=== PATIENT | female | born 1985 | race Two or more races ===

== ENCOUNTER 2016-08-20 15:38 | Emergency (ER) | payer OTHER ==
[2016-08-20] MEDS ORDERED: METOCLOPRAMIDE INJ 10MG/2ML VIAL (J2765) As Ordered ONE (16:36)
[2016-08-20 17:03] LABS: BASO % 0.1 % (0.0-1.0); EOS # 0.1 K/mm3 (0.0-0.50); EOS % 0.6 % (0.0-3.0); LARGE UNSTAINED CELL # 0.1 K/mm3 (0.0-0.4); LARGE UNSTAINED CELL % 1.1 % (0.0-4.0); LYMPH # 1.5 K/mm3 (1.5-6.5); LYMPH % 12.8 % (24.0-44.0); MEAN CORPUSCULAR HEMOGLOBIN 23.5 pg (27.0-33.0); MEAN CORPUSCULAR HGB CONC 31.3 g/dl (32.0-36.5); MEAN CORPUSCULAR VOLUME 75.2 fl (80.0-96.0); MONO # 0.5 K/mm3 (0.0-0.8); MONO % 3.8 % (0.0-5.0); NEUTROPHILS # 9.5 K/mm3 (1.8-7.7); NEUTROPHILS % 81.6 % (36.0-66.0); PLATELET COUNT, AUTOMATED 203 k/mm3 (150-450); RED CELL DISTRIBUTION WIDTH 15.4 % (11.5-14.5); WHITE BLOOD COUNT 11.7 K/mm3 (4.0-10.0)
[2016-08-20 17:21] LABS: ANION GAP 10 MEQ/L (8-16); BLOOD UREA NITROGEN 7 MG/DL (7-18); CALCIUM LEVEL 9.3 MG/DL (8.5-10.1); CARBON DIOXIDE LEVEL 25 MEQ/L (21-32); CHLORIDE LEVEL 105 MEQ/L (98-107); CREATININE FOR GFR 0.75 MG/DL (0.55-1.02); GLOMERULAR FILTRATION RATE > 60.0 (>60); GLUCOSE, FASTING 86 MG/DL (70-105); POTASSIUM SERUM 3.7 MEQ/L (3.5-5.1); SODIUM LEVEL 140 MEQ/L (136-145)
--- NOTE | 2016-08-20 18:13 | EDDOCDS ---
Physician Documentation [facility] Name: Jeannie Tripp Age: 31 yrs Sex: Female : 1985 Arrival Date: 08/20/2016 Time: 15:38 Bed I4 / M4 Private MD: Disposition: 08/20/16 18:02 Discharged to Home/Self Care. Impression: Mild hyperemesis gravidarum. - Condition is Stable. - Discharge Instructions: First Trimester of , Hyperemesis Gravidarum. - Prescriptions for Diclegis 10- 10 mg Oral - take 2 tablets by ORAL route every 12 hours As needed; 30 tablet. Vitamin 27- 0.8 mg Oral Tablet - take 1 tablet by ORAL route once daily; 30 tablet. - Medication Reconciliation, Local Pharmacy Hours form. - Follow up: [facility]; When: As previously arranged; Reason: Recheck today's complaints, Continuance of care. Follow up: Emergency Department; When: As needed; Reason: Fever > 102F, Worsening of conditions. - Problem is new. - Symptoms have improved. Historical: - Allergies: no known allergies; - Home Meds: 1. Zofran (as hydrochloride) 4 mg Oral tab has not started yet - PMHx: none; - PSHx: none; - Social history: Smoking status: Patient states was never smoker of tobacco. No barriers to communication noted, The patient speaks fluent Setswana, Speaks appropriately for age. - Family history: Not pertinent. - : The pt / caregiver states he / she is not on anticoagulants. Home medication list is obtained from the patient. - Exposure Risk Screening:: None identified. HAND PATCHER: 08/20 15:49 3, Full Term 2, Living 2, LMP 06/23/2016 ld5 Vital Signs: 15:40 BP 116 / 70; Pulse 89; Resp 16; Temp 97.9(O); Pulse Ox 97% on R/A; Weight 61.23 kg / sew 134.99 lbs; Height 5 ft. 4 in. (162.56 cm); Pain 0/10; 18:06 BP 117 / 71; Pulse 93; Resp 18; Temp 98.9(O); Pulse Ox 100% ; Pain 0/10; rs6 15:40 Body Mass Index 23.17 (61.23 kg, 162.56 cm) sew MDM: 16:32 IV Saline Lock ordered. ar2 16:32 Metoclopramide 10 mg IV at 40 mg/hr once over 15 mins ordered. ar2 16:32 NS 0.9% 1000 ml IV at bolus once ordered. ar2 16:32 Fluid Challenge ordered. ar2 16:32 UA Ordered. EDMS 16:32 MED Profile Ordered. EDMS 16:32 CBC with Diff Ordered. EDMS 16:32 Urine Culture Ordered. EDMS 17:12 CBC with Diff Reviewed. ar2 17:24 MED Profile Reviewed. ar2 17:34 Financial registration complete. zo 17:36 NS 0.9% 1000 ml IV at bolus once ordered. ar2 17:38 [facility] Payment Agreement was scanned into [employer] and attached to record. zo 18:01 UA Reviewed. ar2 Administered Medications: 16:46 Drug: Metoclopramide 10 mg [metoclopramide 5 mg/mL injection solution] Route: IV; Rate: ms18 40 mg/hr; Infused Over: 15 mins; Site: right antecubital; 16:46 Drug: NS 0.9% 1000 ml [sodium chloride 0.9 % intravenous solution] Route: IV; Rate: ms18 bolus; Site: right antecubital; 17:48 Not Given (PA DISCRETION): NS 0.9% 1000 ml IV at bolus once js13 Signatures: Dispatcher [employer] EDElza Mcknight zo Reno Clark PA-C PAKingsC ar2 Darlyn Kingston RN RN ld5 Amalia Jain RN RN ms18 Julia Kumar RN js13 The chart was reviewed and I authenticate all verbal orders and agree with the evaluation and treatment provided.Attachments: 17:38 [facility] Payment Agreement zo MTDD
--- NOTE | 2016-08-20 18:14 | EDDOCDS ---
Nurse's Notes [facility] Name: Jeannie Tripp Age: 31 yrs Sex: Female : 1985 Arrival Date: 08/20/2016 Time: 15:38 Bed I4 / M4 Private MD: Diagnosis: Mild hyperemesis gravidarum Presentation: 08/20 15:46 Presenting complaint: Patient states: Pt reports nausea and vomiting since finding out ld5 she was . Pt reports 8 weeks . Seen at [facility] yesterday for the same, was given Zofran prescription but just picked it up today so has not started it yet. Adult Sepsis Screening: The patient does not have new or worsening altered mentation. Patient's respiratory rate is less than 22. Systolic blood pressure is greater than 100. Patient has a qSOFA score of 0- Negative Sepsis Screen. Suicide/Homicide risk assessment- the patient denies having any suicidal and/or homicidal ideations and does not present with any other emotional, behavioral or mental health complaints. Status: The patient is a dependent. Transition of care: patient was not received from another setting of care. 15:46 Method Of Arrival: Walkin/Carried/Asstd ld5 15:46 Acuity: ORLY Level 4 ld5 16:49 Acuity level changed due to complexity of care. js13 16:49 Acuity: ORLY Level 3 js13 Triage Assessment: 15:49 General: Appears in no apparent distress. Pain: Location: abdomen Quality of pain is ld5 described as "it's like a lump in my stomach whenever I try to throw up". HIV screening NA for this visit Offered previously. Neurological: Level of Consciousness is awake, alert. : Denies vaginal bleeding. FOAM MOLDER: 15:49 3, Full Term 2, Living 2, LMP 06/23/2016 ld5 Historical: - Allergies: no known allergies; - Home Meds: 1. Zofran (as hydrochloride) 4 mg Oral tab has not started yet - PMHx: none; - PSHx: none; - Social history: Smoking status: Patient states was never smoker of tobacco. No barriers to communication noted, The patient speaks fluent Thai, Speaks appropriately for age. - Family history: Not pertinent. - : The pt / caregiver states he / she is not on anticoagulants. Home medication list is obtained from the patient. - Exposure Risk Screening:: None identified. Screenin:48 Screening information is obtained from the patient. Fall risk: No risks identified. ms18 Assistance ADL's: requires no assistance with activities of daily living. Abuse/DV Screen: The patient / caregiver reports he/she is: not in a situation that causes fear, pain or injury. Nutritional screening: No deficits noted. Advance Directives: There is no living will. home support is adequate. Assessment: 16:48 General: Appears in no apparent distress, comfortable, Behavior is appropriate for age, ms18 cooperative. Neurological: No deficits noted. Respiratory: Airway is patent Respiratory effort is even, unlabored. GI: Bowel sounds present X 4 quads. Abd is soft X 4 quads Reports nausea, vomiting. GI: Abdomen is non- distended. Derm: Skin is pink, warm & dry. 17:58 General: Appears in no apparent distress, comfortable, Behavior is appropriate for age, ms18 cooperative. Pain: Denies pain. Neurological: No deficits noted. Respiratory: No deficits noted. GI: Abdomen is non- distended Denies nausea. Derm: Skin is pink, warm & dry. Vital Signs: 15:40 BP 116 / 70; Pulse 89; Resp 16; Temp 97.9(O); Pulse Ox 97% on R/A; Weight 61.23 kg; sew Height 5 ft. 4 in. (162.56 cm); Pain 0/10; 18:06 BP 117 / 71; Pulse 93; Resp 18; Temp 98.9(O); Pulse Ox 100% ; Pain 0/10; rs6 15:40 Body Mass Index 23.17 (61.23 kg, 162.56 cm) [facility] [place] Vitals: 15:40 Log In Time: August 20, 2016 at 15:40. [facility] [place] [place] ED Course: 15:39 Patient visited by Rupinder Mckenna. sew 15:39 Other - Complete Info On Cds is Private Physician. sew 15:39 Patient moved to Waiting sew 15:41 Patient visited by Rupinder Mckenna. sew 15:41 Patient moved to Pre RCE sew 15:48 Triage Initiated ld5 15:51 Patient visited by Darlyn Kingston RN. ld5 16:19 Reno Clark PA-C is [facility]. ar2 16:19 Addi Jacobo MD is Attending Physician. ar2 16:23 Patient visited by Reno Clark PA-C. ar2 16:23 Patient moved to Triage 1 ld5 16:33 Patient moved to I4 / M4 ml6 16:44 Inserted saline lock: 18 gauge in right antecubital area The patient tolerated the js13 procedure well. 16:45 Patient visited by Amalia Jain RN. ms18 16:45 CBC with Diff Sent. ms18 16:45 MED Profile Sent. ms18 16:48 The patient / caregiver is instructed regarding the plan of care and ED course. Patient ms18 has correct armband on for positive identification. Placed in gown. Property :Personal belongings accompany Pt. 16:50 The patient / caregiver is instructed regarding the plan of care and ED course. js13 16:50 No procedures done that require assistance. js13 17:34 PO fluids given. pt provided with gingerale on provider request. rs6 17:35 Patient visited by Beronica Keller PCA. rs6 17:38 [facility] Payment Agreement was scanned into [employer] and attached to record. zo 17:43 Urine Culture Sent. ms18 17:43 UA Sent. ms18 17:44 Patient visited by Beronica Keller INSTRUCTIONAL DESIGN CONSULTANT. rs6 17:44 Assisted to bathroom. rs6 17:58 Discontinued IV lock intact, bleeding controlled, pressure dressing applied, No ms18 redness/swelling at site. 18:01 Patient name changed from Jeannie\\S\\\\S\\Qasim\\S\\ to Jeannie\\S\\Elvia\\S\\Qasim. EDMS 18:01 Edward Pierson OB is Referral Physician. ar2 18:07 Patient visited by Beronica Keller, INSTRUCTIONAL DESIGN CONSULTANT. rs6 18:10 Patient visited by Amalia Jain RN. ms18 Administered Medications: 16:46 Drug: Metoclopramide 10 mg [metoclopramide 5 mg/mL injection solution] Route: IV; Rate: ms18 40 mg/hr; Infused Over: 15 mins; Site: right antecubital; 16:46 Drug: NS 0.9% 1000 ml [sodium chloride 0.9 % intravenous solution] Route: IV; Rate: ms18 bolus; Site: right antecubital; 17:48 Not Given (PA DISCRETION): NS 0.9% 1000 ml IV at bolus once js13 Order Results: Lab Order: UA; SPEC'M 08/20/16 16:47 Test: APPEARANCE, URINE; Value: CLOUDY; Range: CLEAR; Abnormal: Above high normal; Status: F Test: COLOR, URINE; Value: ALESHIA; Range: YELLOW; Status: F Test: PH,URINE; Value: 5.0; Range: 5.0-9.0; Units: UNITS; Status: F Test: SPECIFIC GRAVITY URINE AUTO; Value: 1.033; Range: 1.002-1.035; Status: F Test: PROTEIN, URINE AUTO; Value: 2+; Range: NEGATIVE; Abnormal: Above high normal; Units: mg/dL; Status: F Test: GLUCOSE, URINE (UA) AUTO; Value: NEGATIVE; Range: NEGATIVE; Units: mg/dL; Status: F Test: KETONE, URINE AUTO; Value: 2+; Range: NEGATIVE; Abnormal: Above high normal; Units: mg/dL; Status: F Test: UROBILINOGEN, URINE AUTO; Value: 0.2; Range: 0.0-2.0; Units: mg/dL; Status: F Test: BILIRUBIN, URINE AUTO; Value: NEGATIVE; Range: NEGATIVE; Status: F Test: NITRITE, URINE AUTO; Value: NEGATIVE; Range: NEGATIVE; Status: F Test: LEUKOCYTE ESTERASE, URINE AUTO; Value: 3+; Range: NEGATIVE; Abnormal: Above high normal; Status: F Test: BLOOD, URINE BLOOD; Value: NEGATIVE; Range: NEGATIVE; Status: F Test: WBC, URINE AUTO; Value: 71; Range: 0-3; Abnormal: Above high normal; Units: /HPF; Status: F Test: RBC, URINE AUTO; Value: 3; Range: 0-3; Units: /HPF; Status: F Test: BACTERIA, URINE AUTO; Value: 2+; Range: NEGATIVE; Abnormal: Above high normal; Status: F Test: SQUAMOUS EPITHELIAL CELL UR AU; Value: 8; Range: 0-6; Units: /HPF; Status: F Test: MUCUS, URINE; Value: MODERATE; Range: NEGATIVE; Status: F Test: HYALINE CAST, URINE AUTO; Value: 0; Range: 0-1; Units: /LPF; Status: F Lab Order: MED Profile; SPEC'M 08/20/16 16:47 Test: GLUCOSE, FASTING; Value: 86; Range: 70-105; Units: MG/DL; Status: F Test: BLOOD UREA NITROGEN; Value: 7; Range: 7-18; Units: MG/DL; Status: F Test: CREATININE FOR GFR; Value: 0.75; Range: 0.55-1.02; Units: MG/DL; Status: F Test: GLOMERULAR FILTRATION RATE; Value: > 60.0; Range: >60; Status: F Test: SODIUM LEVEL; Value: 140; Range: 136-145; Units: MEQ/L; Status: F Test: POTASSIUM SERUM; Value: 3.7; Range: 3.5-5.1; Units: MEQ/L; Status: F Test: CHLORIDE LEVEL; Value: 105; Range: 98-107; Units: MEQ/L; Status: F Test: CARBON DIOXIDE LEVEL; Value: 25; Range: 21-32; Units: MEQ/L; Status: F Test: ANION GAP; Value: 10; Range: 8-16; Units: MEQ/L; Status: F Test: CALCIUM LEVEL; Value: 9.3; Range: 8.5-10.1; Units: MG/DL; Status: F Test Note: ; Units are mL/min/1.73 m2 Chronic Kidney Disease Staging per NKF: Stage I & II GFR >=60 Normal to Mildly Decreased Stage III GFR 30-59 Moderately Decreased Stage IV GFR 15-29 Severely Decreased Stage V GFR <15 Very Little GFR Left ESRD GFR <15 on COUNSELING SERVICES DIRECTOR Lab Order: CBC with Diff; SPEC'M 08/20/16 16:47 Test: WHITE BLOOD COUNT; Value: 11.7; Range: 4.0-10.0; Abnormal: Above high normal; Units: K/mm3; Status: F Test: RED BLOOD COUNT; Value: 4.97; Range: 4.00-5.40; Units: M/mm3; Status: F Test: HEMOGLOBIN; Value: 11.7; Range: 12.0-16.0; Abnormal: Below low normal; Units: g/dl; Status: F Test: HEMATOCRIT; Value: 37.4; Range: 36.0-47.0; Units: %; Status: F Test: MEAN CORPUSCULAR VOLUME; Value: 75.2; Range: 80.0-96.0; Abnormal: Below low normal; Units: fl; Status: F Test: MEAN CORPUSCULAR HEMOGLOBIN; Value: 23.5; Range: 27.0-33.0; Abnormal: Below low normal; Units: pg; Status: F Test: MEAN CORPUSCULAR HGB CONC; Value: 31.3; Range: 32.0-36.5; Abnormal: Below low normal; Units: g/dl; Status: F Test: RED CELL DISTRIBUTION WIDTH; Value: 15.4; Range: 11.5-14.5; Abnormal: Above high normal; Units: %; Status: F Test: PLATELET COUNT, AUTOMATED; Value: 203; Range: 150-450; Units: k/mm3; Status: F Test: NEUTROPHILS %; Value: 81.6; Range: 36.0-66.0; Abnormal: Above high normal; Units: %; Status: F Test: LYMPH %; Value: 12.8; Range: 24.0-44.0; Abnormal: Below low normal; Units: %; Status: F Test: MONO %; Value: 3.8; Range: 0.0-5.0; Units: %; Status: F Test: EOS %; Value: 0.6; Range: 0.0-3.0; Units: %; Status: F Test: BASO %; Value: 0.1; Range: 0.0-1.0; Units: %; Status: F Test: LARGE UNSTAINED CELL %; Value: 1.1; Range: 0.0-4.0; Units: %; Status: F Test: NEUTROPHILS #; Value: 9.5; Range: 1.8-7.7; Abnormal: Above high normal; Units: K/mm3; Status: F Test: LYMPH #; Value: 1.5; Range: 1.5-6.5; Units: K/mm3; Status: F Test: MONO #; Value: 0.5; Range: 0.0-0.8; Units: K/mm3; Status: F Test: EOS #; Value: 0.1; Range: 0.0-0.50; Units: K/mm3; Status: F Test: BASO #; Value: 0.0; Range: 0.0-0.2; Units: K/mm3; Status: F Test: LARGE UNSTAINED CELL #; Value: 0.1; Range: 0.0-0.4; Units: K/mm3; Status: F Outcome: 17:58 Discharge Assessment: Patient awake, alert and oriented x 3. No cognitive and/or ms18 functional deficits noted. Patient verbalized understanding of disposition instructions. patient administered narcotics - no. The following High Risk Discharge criteria are identified: None. Discharged to home ambulatory. Condition: good Condition: stable Condition: improved. Discharge instructions given to patient, Instructed on discharge instructions, follow up and referral plans. medication usage, Demonstrated understanding of instructions, medications, Pt was receptive of discharge instructions/ teaching. Prescriptions given X 2. No special radiology studies were completed. 18:02 Discharge ordered by Provider. ar2 18:12 Patient left the ED. ms18 Signatures: Dispatcher [employer] EDMS Elza Tena Aaron, PA-C PA-C ar2 Alejandro Lam, RN RN ml6 Darlyn KingstonRN RN ld5 Julia KumarRN RN js13 Rupinder Mckenna Mallory, RN RN ms18 Beronica Keller, INSTRUCTIONAL DESIGN CONSULTANT INSTRUCTIONAL DESIGN CONSULTANT rs6 Corrections: (The following items were deleted from the chart) 15:51 15:46 Presenting complaint: Patient states: Pt reports nausea and vomiting since ld5 finding out she was . Pt reports 8 weeks ld5 15:51 15:46 Acuity: ORLY Level 3 ld5 ld5 MTDD
--- NOTE | 2016-08-24 09:38 | EDDOCDS ---
Physician Documentation [facility] Name: Jeannie Tripp Age: 31 yrs Sex: Female : 1985 Arrival Date: 08/20/2016 Time: 15:38 Bed I4 / M4 Private MD: Disposition: 08/20/16 18:02 Discharged to Home/Self Care. Impression: Mild hyperemesis gravidarum. - Condition is Stable. - Discharge Instructions: First Trimester of , Hyperemesis Gravidarum. - Prescriptions for Diclegis 10- 10 mg Oral - take 2 tablets by ORAL route every 12 hours As needed; 30 tablet. Vitamin 27- 0.8 mg Oral Tablet - take 1 tablet by ORAL route once daily; 30 tablet. - Medication Reconciliation, Local Pharmacy Hours form. - Follow up: [facility]; When: As previously arranged; Reason: Recheck today's complaints, Continuance of care. Follow up: Emergency Department; When: As needed; Reason: Fever > 102F, Worsening of conditions. - Problem is new. - Symptoms have improved. Historical: - Allergies: no known allergies; - Home Meds: 1. Zofran (as hydrochloride) 4 mg Oral tab has not started yet - PMHx: none; - PSHx: none; - Social history: Smoking status: Patient states was never smoker of tobacco. No barriers to communication noted, The patient speaks fluent Turkish, Speaks appropriately for age. - Family history: Not pertinent. - : The pt / caregiver states he / she is not on anticoagulants. Home medication list is obtained from the patient. - Exposure Risk Screening:: None identified. TRUST VAULT CLERK: 08/20 15:49 3, Full Term 2, Living 2, LMP 06/23/2016 ld5 Vital Signs: 15:40 BP 116 / 70; Pulse 89; Resp 16; Temp 97.9(O); Pulse Ox 97% on R/A; Weight 61.23 kg / sew 134.99 lbs; Height 5 ft. 4 in. (162.56 cm); Pain 0/10; 18:06 BP 117 / 71; Pulse 93; Resp 18; Temp 98.9(O); Pulse Ox 100% ; Pain 0/10; rs6 15:40 Body Mass Index 23.17 (61.23 kg, 162.56 cm) sew MDM: 16:32 IV Saline Lock ordered. ar2 16:32 Metoclopramide 10 mg IV at 40 mg/hr once over 15 mins ordered. ar2 16:32 NS 0.9% 1000 ml IV at bolus once ordered. ar2 16:32 Fluid Challenge ordered. ar2 16:32 UA Ordered. EDMS 16:32 MED Profile Ordered. EDMS 16:32 CBC with Diff Ordered. EDMS 16:32 Urine Culture Ordered. EDMS 17:12 CBC with Diff Reviewed. ar2 17:24 MED Profile Reviewed. ar2 17:34 Financial registration complete. zo 17:36 NS 0.9% 1000 ml IV at bolus once ordered. ar2 17:38 [facility] Payment Agreement was scanned into [employer] and attached to record. zo 18:01 UA Reviewed. ar2 08/21 08:55 T-Sheet-- Draft Copy was scanned into [employer] and attached to record. se Administered Medications: 08/20 16:46 Drug: Metoclopramide 10 mg [metoclopramide 5 mg/mL injection solution] Route: IV; Rate: ms18 40 mg/hr; Infused Over: 15 mins; Site: right antecubital; 16:46 Drug: NS 0.9% 1000 ml [sodium chloride 0.9 % intravenous solution] Route: IV; Rate: ms18 bolus; Site: right antecubital; 17:48 Not Given (PA DISCRETION): NS 0.9% 1000 ml IV at bolus once js13 Signatures: Dispatcher [employer] EDGA Elza Tena Aaron, PA-C PA-C ar2 Darlyn Kingston RN RN ld5 Amalia Jain RN RN ms18 Rupinder Monzon Jennifer RN js13 The chart was reviewed and I authenticate all verbal orders and agree with the evaluation and treatment provided.Attachments: 17:38 [facility] Payment Agreement zo 08/21 08:55 T-Sheet-- Draft Copy [facility] Chart Complete MTDD
--- NOTE | 2016-08-24 09:38 | EDDOCDS ---
Physician Documentation [facility] Name: Jeannie Tripp Age: 31 yrs Sex: Female : 1985 Arrival Date: 08/20/2016 Time: 15:38 Bed I4 / M4 Private MD: Disposition: 08/20/16 18:02 Discharged to Home/Self Care. Impression: Mild hyperemesis gravidarum. - Condition is Stable. - Discharge Instructions: First Trimester of , Hyperemesis Gravidarum. - Prescriptions for Diclegis 10- 10 mg Oral - take 2 tablets by ORAL route every 12 hours As needed; 30 tablet. Vitamin 27- 0.8 mg Oral Tablet - take 1 tablet by ORAL route once daily; 30 tablet. - Medication Reconciliation, Local Pharmacy Hours form. - Follow up: [facility]; When: As previously arranged; Reason: Recheck today's complaints, Continuance of care. Follow up: Emergency Department; When: As needed; Reason: Fever > 102F, Worsening of conditions. - Problem is new. - Symptoms have improved. Historical: - Allergies: no known allergies; - Home Meds: 1. Zofran (as hydrochloride) 4 mg Oral tab has not started yet - PMHx: none; - PSHx: none; - Social history: Smoking status: Patient states was never smoker of tobacco. No barriers to communication noted, The patient speaks fluent Vietnamese, Speaks appropriately for age. - Family history: Not pertinent. - : The pt / caregiver states he / she is not on anticoagulants. Home medication list is obtained from the patient. - Exposure Risk Screening:: None identified. SIEVE MAKER: 08/20 15:49 3, Full Term 2, Living 2, LMP 06/23/2016 ld5 Vital Signs: 15:40 BP 116 / 70; Pulse 89; Resp 16; Temp 97.9(O); Pulse Ox 97% on R/A; Weight 61.23 kg / sew 134.99 lbs; Height 5 ft. 4 in. (162.56 cm); Pain 0/10; 18:06 BP 117 / 71; Pulse 93; Resp 18; Temp 98.9(O); Pulse Ox 100% ; Pain 0/10; rs6 15:40 Body Mass Index 23.17 (61.23 kg, 162.56 cm) sew MDM: 16:32 IV Saline Lock ordered. ar2 16:32 Metoclopramide 10 mg IV at 40 mg/hr once over 15 mins ordered. ar2 16:32 NS 0.9% 1000 ml IV at bolus once ordered. ar2 16:32 Fluid Challenge ordered. ar2 16:32 UA Ordered. EDMS 16:32 MED Profile Ordered. EDMS 16:32 CBC with Diff Ordered. EDMS 16:32 Urine Culture Ordered. EDMS 17:12 CBC with Diff Reviewed. ar2 17:24 MED Profile Reviewed. ar2 17:34 Financial registration complete. zo 17:36 NS 0.9% 1000 ml IV at bolus once ordered. ar2 17:38 [facility] Payment Agreement was scanned into [employer] and attached to record. zo 18:01 UA Reviewed. ar2 08/21 08:55 T-Sheet-- Draft Copy was scanned into [employer] and attached to record. se Administered Medications: 08/20 16:46 Drug: Metoclopramide 10 mg [metoclopramide 5 mg/mL injection solution] Route: IV; Rate: ms18 40 mg/hr; Infused Over: 15 mins; Site: right antecubital; 16:46 Drug: NS 0.9% 1000 ml [sodium chloride 0.9 % intravenous solution] Route: IV; Rate: ms18 bolus; Site: right antecubital; 17:48 Not Given (PA DISCRETION): NS 0.9% 1000 ml IV at bolus once js13 Signatures: Dispatcher [employer] EDCA Elza Tena Aaron, PA-C PA-C ar2 Darlyn Kingston RN RN ld5 Amalia Jain RN RN ms18 Rupinder Monzon Jennifer RN js13 The chart was reviewed and I authenticate all verbal orders and agree with the evaluation and treatment provided.Attachments: 17:38 [facility] Payment Agreement zo 08/21 08:55 T-Sheet-- Draft Copy [facility] Chart Complete MTDD
--- NOTE | 2016-08-24 09:38 | EDDOCDS ---
Nurse's Notes [facility] Name: Jeannie Tripp Age: 31 yrs Sex: Female : 1985 Arrival Date: 08/20/2016 Time: 15:38 Bed I4 / M4 Private MD: Diagnosis: Mild hyperemesis gravidarum Presentation: 08/20 15:46 Presenting complaint: Patient states: Pt reports nausea and vomiting since finding out ld5 she was . Pt reports 8 weeks . Seen at [place] yesterday for the same, was given Zofran prescription but just picked it up today so has not started it yet. Adult Sepsis Screening: The patient does not have new or worsening altered mentation. Patient's respiratory rate is less than 22. Systolic blood pressure is greater than 100. Patient has a qSOFA score of 0- Negative Sepsis Screen. Suicide/Homicide risk assessment- the patient denies having any suicidal and/or homicidal ideations and does not present with any other emotional, behavioral or mental health complaints. Status: The patient is a dependent. Transition of care: patient was not received from another setting of care. 15:46 Method Of Arrival: Walkin/Carried/Asstd ld5 15:46 Acuity: ORLY Level 4 ld5 16:49 Acuity level changed due to complexity of care. js13 16:49 Acuity: ORLY Level 3 js13 Triage Assessment: 15:49 General: Appears in no apparent distress. Pain: Location: abdomen Quality of pain is ld5 described as "it's like a lump in my stomach whenever I try to throw up". HIV screening NA for this visit Offered previously. Neurological: Level of Consciousness is awake, alert. : Denies vaginal bleeding. 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 Zofran (as hydrochloride) 4 mg Oral tab has not started yet - PMHx: none; - PSHx: none; - Social history: Smoking status: Patient states was never smoker of tobacco. No barriers to communication noted, The patient speaks fluent Czech, Speaks appropriately for age. - Family history: Not pertinent. - : The pt / caregiver states he / she is not on anticoagulants. Home medication list is obtained from the patient. - Exposure Risk Screening:: None identified. Screenin:48 Screening information is obtained from the patient. Fall risk: No risks identified. ms18 Assistance ADL's: requires no assistance with activities of daily living. Abuse/DV Screen: The patient / caregiver reports he/she is: not in a situation that causes fear, pain or injury. Nutritional screening: No deficits noted. Advance Directives: There is no living will. home support is adequate. Assessment: 16:48 General: Appears in no apparent distress, comfortable, Behavior is appropriate for age, ms18 cooperative. Neurological: No deficits noted. Respiratory: Airway is patent Respiratory effort is even, unlabored. GI: Bowel sounds present X 4 quads. Abd is soft X 4 quads Reports nausea, vomiting. GI: Abdomen is non- distended. Derm: Skin is pink, warm & dry. 17:58 General: Appears in no apparent distress, comfortable, Behavior is appropriate for age, ms18 cooperative. Pain: Denies pain. Neurological: No deficits noted. Respiratory: No deficits noted. GI: Abdomen is non- distended Denies nausea. Derm: Skin is pink, warm & dry. Vital Signs: 15:40 BP 116 / 70; Pulse 89; Resp 16; Temp 97.9(O); Pulse Ox 97% on R/A; Weight 61.23 kg; sew Height 5 ft. 4 in. (162.56 cm); Pain 0/10; 18:06 BP 117 / 71; Pulse 93; Resp 18; Temp 98.9(O); Pulse Ox 100% ; Pain 0/10; rs6 15:40 Body Mass Index 23.17 (61.23 kg, 162.56 cm) [facility] Vitals: 15:40 Log In Time: August 20, 2016 at 15:40. [facility] ED Course: 15:39 Patient visited by Rupinder Mckenna. sew 15:39 Other - Complete Info On Cds is Private Physician. sew 15:39 Patient moved to Waiting sew 15:41 Patient visited by Rupinder Mckenna. sew 15:41 Patient moved to Pre RCE sew 15:48 Triage Initiated ld5 15:51 Patient visited by Darlyn Kingston RN. ld5 16:19 Reno Clark [facility]-C [facility]. ar2 16:19 Addi Jacobo MD is Attending Physician. ar2 16:23 Patient visited by Reno Clark PA-C. ar2 16:23 Patient moved to Triage 1 ld5 16:33 Patient moved to I4 / M4 ml6 16:44 Inserted saline lock: 18 gauge in right antecubital area The patient tolerated the js13 procedure well. 16:45 Patient visited by Amalia Jain RN. ms18 16:45 CBC with Diff Sent. ms18 16:45 MED Profile Sent. ms18 16:48 The patient / caregiver is instructed regarding the plan of care and ED course. Patient ms18 has correct armband on for positive identification. Placed in gown. Property :Personal belongings accompany Pt. 16:50 The patient / caregiver is instructed regarding the plan of care and ED course. js13 16:50 No procedures done that require assistance. js13 17:34 PO fluids given. pt provided with gingerale on provider request. rs6 17:35 Patient visited by Beronica Keller PCA. rs6 17:38 [facility] Payment Agreement was scanned into [employer] and attached to record. zo 17:43 Urine Culture Sent. ms18 17:43 UA Sent. ms18 17:44 Patient visited by Beronica Keller PCA. rs6 17:44 Assisted to bathroom. rs6 17:58 Discontinued IV lock intact, bleeding controlled, pressure dressing applied, No ms18 redness/swelling at site. 18:01 Patient name changed from Jeannie\\S\\\\S\\Qasim\\S\\ to Jeannie\\S\\Elvia\\S\\Qasim. EDMS 18:01 Edward Pierson OB is Referral Physician. ar2 18:07 Patient visited by Beronica Keller PCA. rs6 18:10 Patient visited by Amalia Jain RN. ms18 08/21 08:55 T-Sheet-- Draft Copy was scanned into [employer] and attached to record. [facility] Administered Medications: 08/20 16:46 Drug: Metoclopramide 10 mg [metoclopramide 5 mg/mL injection solution] Route: IV; Rate: ms18 40 mg/hr; Infused Over: 15 mins; Site: right antecubital; 16:46 Drug: NS 0.9% 1000 ml [sodium chloride 0.9 % intravenous solution] Route: IV; Rate: ms18 bolus; Site: right antecubital; 17:48 Not Given (PA DISCRETION): NS 0.9% 1000 ml IV at bolus once js13 Order Results: Lab Order: UA; SPEC'M 08/20/16 16:47 Test: APPEARANCE, URINE; Value: CLOUDY; Range: CLEAR; Abnormal: Above high normal; Status: F Test: COLOR, URINE; Value: ALESHIA; Range: YELLOW; Status: F Test: PH,URINE; Value: 5.0; Range: 5.0-9.0; Units: UNITS; Status: F Test: SPECIFIC GRAVITY URINE AUTO; Value: 1.033; Range: 1.002-1.035; Status: F Test: PROTEIN, URINE AUTO; Value: 2+; Range: NEGATIVE; Abnormal: Above high normal; Units: mg/dL; Status: F Test: GLUCOSE, URINE (UA) AUTO; Value: NEGATIVE; Range: NEGATIVE; Units: mg/dL; Status: F Test: KETONE, URINE AUTO; Value: 2+; Range: NEGATIVE; Abnormal: Above high normal; Units: mg/dL; Status: F Test: UROBILINOGEN, URINE AUTO; Value: 0.2; Range: 0.0-2.0; Units: mg/dL; Status: F Test: BILIRUBIN, URINE AUTO; Value: NEGATIVE; Range: NEGATIVE; Status: F Test: NITRITE, URINE AUTO; Value: NEGATIVE; Range: NEGATIVE; Status: F Test: LEUKOCYTE ESTERASE, URINE AUTO; Value: 3+; Range: NEGATIVE; Abnormal: Above high normal; Status: F Test: BLOOD, URINE BLOOD; Value: NEGATIVE; Range: NEGATIVE; Status: F Test: WBC, URINE AUTO; Value: 71; Range: 0-3; Abnormal: Above high normal; Units: /HPF; Status: F Test: RBC, URINE AUTO; Value: 3; Range: 0-3; Units: /HPF; Status: F Test: BACTERIA, URINE AUTO; Value: 2+; Range: NEGATIVE; Abnormal: Above high normal; Status: F Test: SQUAMOUS EPITHELIAL CELL UR AU; Value: 8; Range: 0-6; Units: /HPF; Status: F Test: MUCUS, URINE; Value: MODERATE; Range: NEGATIVE; Status: F Test: HYALINE CAST, URINE AUTO; Value: 0; Range: 0-1; Units: /LPF; Status: F Lab Order: Urine Culture; SPEC'M 08/20/16 16:47 Test: URINE CULTURE; Value: URINE CULTURE RESULT NO GROWTH; Status: F Lab Order: MED Profile; SPEC'M 08/20/16 16:47 Test: GLUCOSE, FASTING; Value: 86; Range: 70-105; Units: MG/DL; Status: F Test: BLOOD UREA NITROGEN; Value: 7; Range: 7-18; Units: MG/DL; Status: F Test: CREATININE FOR GFR; Value: 0.75; Range: 0.55-1.02; Units: MG/DL; Status: F Test: GLOMERULAR FILTRATION RATE; Value: > 60.0; Range: >60; Status: F Test: SODIUM LEVEL; Value: 140; Range: 136-145; Units: MEQ/L; Status: F Test: POTASSIUM SERUM; Value: 3.7; Range: 3.5-5.1; Units: MEQ/L; Status: F Test: CHLORIDE LEVEL; Value: 105; Range: 98-107; Units: MEQ/L; Status: F Test: CARBON DIOXIDE LEVEL; Value: 25; Range: 21-32; Units: MEQ/L; Status: F Test: ANION GAP; Value: 10; Range: 8-16; Units: MEQ/L; Status: F Test: CALCIUM LEVEL; Value: 9.3; Range: 8.5-10.1; Units: MG/DL; Status: F Test Note: ; Units are mL/min/1.73 m2 Chronic Kidney Disease Staging per NKF: Stage I & II GFR >=60 Normal to Mildly Decreased Stage III GFR 30-59 Moderately Decreased Stage IV GFR 15-29 Severely Decreased Stage V GFR <15 Very Little GFR Left ESRD GFR <15 on HOSPITALIST MEDICAL DIRECTOR Lab Order: CBC with Diff; SPEC'M 08/20/16 16:47 Test: WHITE BLOOD COUNT; Value: 11.7; Range: 4.0-10.0; Abnormal: Above high normal; Units: K/mm3; Status: F Test: RED BLOOD COUNT; Value: 4.97; Range: 4.00-5.40; Units: M/mm3; Status: F Test: HEMOGLOBIN; Value: 11.7; Range: 12.0-16.0; Abnormal: Below low normal; Units: g/dl; Status: F Test: HEMATOCRIT; Value: 37.4; Range: 36.0-47.0; Units: %; Status: F Test: MEAN CORPUSCULAR VOLUME; Value: 75.2; Range: 80.0-96.0; Abnormal: Below low normal; Units: fl; Status: F Test: MEAN CORPUSCULAR HEMOGLOBIN; Value: 23.5; Range: 27.0-33.0; Abnormal: Below low normal; Units: pg; Status: F Test: MEAN CORPUSCULAR HGB CONC; Value: 31.3; Range: 32.0-36.5; Abnormal: Below low normal; Units: g/dl; Status: F Test: RED CELL DISTRIBUTION WIDTH; Value: 15.4; Range: 11.5-14.5; Abnormal: Above high normal; Units: %; Status: F Test: PLATELET COUNT, AUTOMATED; Value: 203; Range: 150-450; Units: k/mm3; Status: F Test: NEUTROPHILS %; Value: 81.6; Range: 36.0-66.0; Abnormal: Above high normal; Units: %; Status: F Test: LYMPH %; Value: 12.8; Range: 24.0-44.0; Abnormal: Below low normal; Units: %; Status: F Test: MONO %; Value: 3.8; Range: 0.0-5.0; Units: %; Status: F Test: EOS %; Value: 0.6; Range: 0.0-3.0; Units: %; Status: F Test: BASO %; Value: 0.1; Range: 0.0-1.0; Units: %; Status: F Test: LARGE UNSTAINED CELL %; Value: 1.1; Range: 0.0-4.0; Units: %; Status: F Test: NEUTROPHILS #; Value: 9.5; Range: 1.8-7.7; Abnormal: Above high normal; Units: K/mm3; Status: F Test: LYMPH #; Value: 1.5; Range: 1.5-6.5; Units: K/mm3; Status: F Test: MONO #; Value: 0.5; Range: 0.0-0.8; Units: K/mm3; Status: F Test: EOS #; Value: 0.1; Range: 0.0-0.50; Units: K/mm3; Status: F Test: BASO #; Value: 0.0; Range: 0.0-0.2; Units: K/mm3; Status: F Test: LARGE UNSTAINED CELL #; Value: 0.1; Range: 0.0-0.4; Units: K/mm3; Status: F Outcome: 17:58 Discharge Assessment: Patient awake, alert and oriented x 3. No cognitive and/or ms18 functional deficits noted. Patient verbalized understanding of disposition instructions. patient administered narcotics - no. The following High Risk Discharge criteria are identified: None. Discharged to home ambulatory. Condition: good Condition: stable Condition: improved. Discharge instructions given to patient, Instructed on discharge instructions, follow up and referral plans. medication usage, Demonstrated understanding of instructions, medications, Pt was receptive of discharge instructions/ teaching. Prescriptions given X 2. No special radiology studies were completed. 18:02 Discharge ordered by Provider. ar2 18:12 Patient left the ED. ms18 Signatures: Dispatcher [employer] EDMS Elza Tena Aaron, PA-C PA-C ar2 Alejandro Lam, RN RN ml6 Darlyn KingstonRN RN ld5 Julia Kumar,RN RN js13 Rupinder Mckenna Mallory, RN RN ms18 Beronica Keller, BATCH UNIT TREATER BATCH UNIT TREATER rs6 Rupinder Monzon Corrections: (The following items were deleted from the chart) 15:51 15:46 Presenting complaint: Patient states: Pt reports nausea and vomiting since ld5 finding out she was . Pt reports 8 weeks ld5 15:51 15:46 Acuity: ORLY Level 3 ld5 ld5 Chart Complete MTDD
== END 2016-08-20 18:12 | disposition home or self-care (01) ==
LOC: M ED 15:38
DX: O21.0 Mild hyperemesis gravidarum (principal); Z79.899 Other long term (current) drug therapy
CPT/HCPCS: 80048; 81001; 85025; 87086; 96374; 99284; J2765